=== PATIENT | male | born 1975 | race Caucasian/White ===

== ENCOUNTER 2021-07-22 07:07 | Emergency (ER) | payer MEDICAID, SELFPAY ==
[2021-07-22 07:09] VITALS: BP 157/92; PULSE 83; RESP 16; TEMP 35.6; O2SAT 99; BMI 32.8
--- NOTE | 2021-07-22 07:27 | EX.ED.DYSGE1 ---
HPI History of Present Illness Chief Complaint: Abscess Informant: patient Onset/Context/Timing Onset: Weeks Context: Gradual Onset Timing: Continuous Quality: Pressure Location: Left side of neck Worsened by: Turning head to the right Relieved by: Nothing Narrative Narrative: Patient presents with swelling to the left side of his neck that has been going on for a few weeks. Patient feels some pressure over this area. Patient states it is worse with turning his head to the right. Patient states it is also worse whenever his hodge rubs against it. Patient denies any discharge or drainage from the area. Patient denies any fevers or chills. Patient denies any difficulty breathing or difficulty swallowing. PFSH PFSH Medical History no medical history no medical history Home Medications cyclobenzaprine 10 mg PO TID PRN #20 tablet 10/05/13 [Rx Last Taken Unknown] hydrocodone-acetaminophen 1 - 2 tab PO Q4H PRN PRN #20 tablet 10/05/13 [Rx Last Taken Unknown] naproxen 500 mg PO BID #20 tab 10/05/13 [Rx Last Taken Unknown] cyclobenzaprine 10 mg PO TID PRN #20 tablet 02/21/14 [Rx Last Taken Unknown] naproxen 500 mg PO BID PRN #20 tab 02/21/14 [Rx Last Taken Unknown] oxycodone-acetaminophen 1 - 2 tab PO Q4H PRN PRN #12 tab 02/21/14 [Rx Last Taken Unknown] cyclobenzaprine 10 mg PO TID PRN #20 tablet 06/29/14 [Rx Last Taken Unknown] hydrocodone-acetaminophen 1 - 2 tab PO Q4H PRN PRN #20 tablet 06/29/14 [Rx Last Taken Unknown] naproxen 500 mg PO BID #20 tab 06/29/14 [Rx Last Taken Unknown] cephalexin 500 mg PO Q6 #40 capsule 07/22/21 [Rx Last Taken Unknown] Allergy/AdvReac Type Severity Reaction Status Date / Time No Known Allergies Allergy Verified 07/22/21 07:08 Family History no significant family his Surgical History no surgical history no surgical history Social History Smoking Status: Unknown if ever smoked ROS ROS ED Constitutional Constitutional ED: Denies chills or fever(s) Eyes Eyes: Denies blurry vision or change in vision ENT ENT ED: Denies rhinorrhea or sore throat Cardiovascular Cardiovascular: Denies chest pain or palpitations Respiratory/Chest Respiratory/Chest: Denies cough or dyspnea Gastrointestinal Gastrointestinal: Denies nausea or vomiting Genitourinary Genitourinary ED: Denies dysuria or hematuria Musculoskeletal Musculoskeletal: Reports neck pain; Denies back pain Integumentary Reports abscess; Denies rash Neurologic Neurologic: Denies headache(s) or weakness Allergic/Immunologic Allergic/Immunologic ED: Denies mouth swelling or urticaria EXAM Physical Exam Const Vital Signs: 07/22/21 07:09 Temperature 96.0 F L Temperature Source Temporal Pulse Rate 83 Respiratory Rate 16 Blood Pressure 157/92 H Blood Pressure Mean 113 Pulse Ox 99 Oxygen Delivery Method Room Air Positive well nourished and well developed General Appearance ED: well developed and NAD HEENT Reports moist mucous membranes Neck supple and no JVD Neuro oriented x3, CN's II-XII intact bilaterally and no sensory deficits noted Sensorium / Orientation: alert Motor Exam: strength 5/5 throughout Psych mental status grossly normal Skin Skin Narrative: There is a large abscess noted to the anterior aspect of the left side of the neck. There is fluctuance noted. There is some mild purulent drainage noted. There is some mild erythema. Trachea is midline. There is no JVD noted. MDM MDM MDM Narrative Medical decision making narrative: I discussed the need for incision and drainage with the patient. He does not want any injections of lidocaine. Topical LET gel was applied. A small cruciate incision was made using 11 blade scalpel. A large amount of purulent drainage was expressed. Patient tolerated the procedure well. Bacitracin dressing was applied. Patient was given a dose of Keflex here. Patient was given a prescription for Keflex. Patient was instructed to use warm compresses to the area. Patient was instructed to follow-up with his primary care physician in 5 to 7 days. Patient understood and was agreeable with the plan. All questions were answered. Discharge Plan Triage Chief Complaint: Abscess ED Provider: Daniel Woodall Dx/Rx/DC Orders Clinical Impression: Abscess of skin of neck Instructions: ED Abscess Incision And Drainage Prescriptions: New cephalexin [cephalexin] 500 MG capsule 500 mg PO Q6 Qty: 40 RF: 0 No Action cyclobenzaprine 10 MG tablet 10 mg PO TID PRN (Reason: Muscle Spasm) Qty: 20 RF: 0 hydrocodone-acetaminophen 1 TABLET tablet 1 - 2 tab PO Q4H PRN PRN (Reason: Pain) Qty: 20 RF: 0 naproxen 500 MG tablet 500 mg PO BID Qty: 20 RF: 0 cyclobenzaprine 10 MG tablet 10 mg PO TID PRN (Reason: Muscle Spasm) Qty: 20 RF: 0 oxycodone-acetaminophen 1 TABLET tablet 1 - 2 tab PO Q4H PRN PRN (Reason: Pain) Qty: 12 RF: 0 naproxen 500 MG tablet 500 mg PO BID PRN Qty: 20 RF: 0 cyclobenzaprine 10 MG tablet 10 mg PO TID PRN (Reason: Muscle Spasm) Qty: 20 RF: 0 hydrocodone-acetaminophen 1 TABLET tablet 1 - 2 tab PO Q4H PRN PRN (Reason: Pain) Qty: 20 RF: 0 naproxen 500 MG tablet 500 mg PO BID Qty: 20 RF: 0 Primary Care Provider: Care Physician,No Primary Referrals: Karsten Lloyd MD [STAFF PHYSICIAN] - Care Physician,No Primary [Primary Care Provider] - Disposition Disposition: Home, Self Care
[2021-07-22] MEDS: Cephalexin 500 MG Capsule PO (07:43)
[2021-07-22] MEDS: Lidocaine/Epi/Tetracaine 50 ML 1 APPLIC TOPICAL (07:43)
== END 2021-07-22 08:15 | disposition home or self-care (01) ==
PROVIDERS: Emergency Provider Emergency Medicine; Visit Provider Emergency Medicine
DX: L02.11 Cutaneous abscess of neck (principal); Z79.1 Long term (current) use of non-steroidal anti-inflammatories (NSAID); Z79.899 Other long term (current) drug therapy
CPT/HCPCS: 10060; 99283